=== PATIENT | female | born 1935 | race Caucasian/White ===

== ENCOUNTER 2020-02-15 02:20 | Outpatient (CLI) | payer MEDICARE, SELFPAY ==
[2020-02-17 01:35] LABS: SARS-CoV-2 RNA PCR Negative
== END 2020-02-15 02:21 | disposition home or self-care (01) ==
LOC: ANHCOVIDDT 02:20
PROVIDERS: PCP Internal Medicine; Visit Provider Internal Medicine Gastroenterology
DX: Z01.812 Encounter for preprocedural laboratory examination (principal); Z11.59 Encounter for screening for other viral diseases
CPT/HCPCS: 87635; C9803; U0003

== ENCOUNTER 2020-02-18 00:58 | Day surgery (SDC) | payer MEDICARE, SELFPAY ==
[2020-02-10 12:35] VITALS: BMI 31.6
--- NOTE | 2020-02-18 12:04 | WPDANESEPPF ---
Anes - Initial Pre Proc Eval Procedure: Operation Date: 02/18/20 13:45 Proposed Procedures p Screening Colonoscopy - Anshul Copeland MD Date/Time: 02/18/20 12:04 Surgeon: Anshul Copeland MD Pre Op Diagnosis: Neoplasm Screening Patient Data Age: 84 Gender: F Height: 1.55 m Weight: 76 kg Allergies Allergy/AdvReac Type Severity Reaction Status Date / Time Penicillins Allergy Severe Difficulty Verified 02/18/20 12:33 Breathing sulfur dioxide Allergy Severe Difficulty Verified 02/18/20 12:33 Breathing lactose AdvReac Verified 02/18/20 12:34 wheat AdvReac Abdominal Verified 02/18/20 12:34 Pain Home Medications Medication Instructions Recorded Confirmed Type omeprazole 40 mg capsule,delayed 40 mg PO DAILY #90 cap 09/09/19 02/10/20 Rx release famotidine 20 mg tablet 20 mg PO DAILY #90 tablet 11/13/19 02/10/20 Rx olmesartan 20 1 tablet PO DAILY #90 tablet 11/13/19 02/10/20 Rx mg-hydrochlorothiazide 12.5 mg tablet hydrocodone 5 mg-acetaminophen 325 1 tablet PO Q12H PRN #60 tablet 02/03/20 02/10/20 Rx mg tablet peg 3350-electrolytes 236 240 ml PO Q10M #4000 ml 02/03/20 Rx gram-22.74 gram-6.74 gram-5.86 gram solution aspirin [Aspir-81] 81 mg PO DAILY 02/10/20 02/10/20 History cholecalciferol (vitamin D3) 25 mcg PO DAILY 02/10/20 02/10/20 History latanoprost 1 drp OPHTHALMIC (EYE) QPM 02/10/20 02/10/20 History Patient hx anesthesia problems: none Family hx anesthesia problems: none PMFSH Past Medical History Medical History (Updated 02/17/20 @ 10:16 by Abdelrahman Guerrero DO) Adult celiac disease Allergies Arthritis Back pain with history of spinal surgery Celiac disease CVA (cerebral vascular accident) 5 mini strokes after surgery 2008 FH: colon cancer GERD (gastroesophageal reflux disease) History of heart attack Hypertension Lactose intolerance Osteoporosis Personal history of gastric ulcer Postoperative cerebrovascular accident Surgical History Surgical History (Updated 02/17/20 @ 10:16 by Abdelrahman Guerrero DO) History of hysterectomy History of neck surgery History of Alissa fundoplication Social History Social History Smoking status: Never smoker Alcohol intake: current Substance use: never Anes - Eval Final PreProcedure Day of Procedure 02/18/20 12:04 Patient weight: obese Heart: regular rate and rhythm Lungs: clear to auscultation and normal air movement Airway: Mallampati scale class II Neurological: alert and oriented Last oral intake: >/= 8 hours ASA classification: III Emergent: no Anesthetic plan: proceed Anesthesia type and monitoring: general GIVS and standard monitoring Informed Consent: The patient's anesthetic plan and its attendant risks and benefits were discussed with the patient/family/POA. Questions were solicited and answers provided to the satisfaction of the patient/family/POA.
[2020-02-18 12:41] VITALS: BP 114/52; PULSE 68; RESP 20; TEMP 36.7; O2SAT 97
[2020-02-18 12:43] VITALS: BMI 30.9
[2020-02-18] MEDS: LACTATED RINGERS 1,000 ML 150 ML IV CONT (12:58)
--- NOTE | 2020-02-18 13:19 | PM.HPGS ---
History of Present Illness History of Present Illness Consent: Risks, benefits, and alternatives have been discussed and questions answered. Patient agrees to proceed with procedure. Chief complaint: Neoplasm Screening Narrative: Loren Dia is a 84 year old female here for positive cologuard, her last colonoscopy about 25-30 years ago. Review of Systems Constitutional: Constitutional: Denies headache(s) and Denies weakness Eyes: Eyes: Denies blurry vision ENT: Reports Normal hearing present, Denies headache(s) and Denies neck pain Cardiovascular: Cardiovascular: Denies chest pain and Denies dyspnea Respiratory: Respiratory: Denies dyspnea Gastrointestinal: Gastrointestinal: Reports no additional gastrointestinal complaints Genitourinary: Genitourinary: Denies dysuria Musculoskeletal: Musculoskeletal: Denies neck pain Integumentary/Breasts: Skin/Breast: Denies dry skin Neurologic: Reports Normal hearing present, Denies headache(s) and Denies weakness Psychiatric: Psychiatric: Denies anxiety Endocrine: Endocrine: Denies change in body appearance Hematologic/Lymphatic: Hematologic/Lymphatic: Denies easy bleeding Allergic/Immunologic: Allergic/Immunologic: Denies urticaria PMFSH Past Medical History Medical History (Updated 02/18/20 @ 13:20 by Anshul Copeland MD) Adult celiac disease Allergies Arthritis Back pain with history of spinal surgery Celiac disease CVA (cerebral vascular accident) 5 mini strokes after surgery 2008 FH: colon cancer GERD (gastroesophageal reflux disease) History of heart attack Hypertension Lactose intolerance Osteoporosis Personal history of gastric ulcer Positive colorectal cancer screening using Cologuard test Postoperative cerebrovascular accident Surgical History Surgical History (Updated 02/17/20 @ 10:16 by Abdelrahman Guerrero DO) History of hysterectomy History of neck surgery History of Alissa fundoplication Social History Social History Smoking status: Never smoker Alcohol intake: current Substance use: never Meds Home Medications and Allergies Home Medications Medication Instructions Recorded Confirmed Type omeprazole 40 mg capsule,delayed 40 mg PO DAILY #90 cap 09/09/19 02/10/20 Rx release famotidine 20 mg tablet 20 mg PO DAILY #90 tablet 11/13/19 02/10/20 Rx olmesartan 20 1 tablet PO DAILY #90 tablet 11/13/19 02/10/20 Rx mg-hydrochlorothiazide 12.5 mg tablet hydrocodone 5 mg-acetaminophen 325 1 tablet PO Q12H PRN #60 tablet 02/03/20 02/10/20 Rx mg tablet peg 3350-electrolytes 236 240 ml PO Q10M #4000 ml 02/03/20 Rx gram-22.74 gram-6.74 gram-5.86 gram solution aspirin [Aspir-81] 81 mg PO DAILY 02/10/20 02/10/20 History cholecalciferol (vitamin D3) 25 mcg PO DAILY 02/10/20 02/10/20 History latanoprost 1 drp OPHTHALMIC (EYE) QPM 02/10/20 02/10/20 History Allergies Allergy/AdvReac Type Severity Reaction Status Date / Time Penicillins Allergy Severe Difficulty Verified 02/18/20 12:33 Breathing sulfur dioxide Allergy Severe Difficulty Verified 02/18/20 12:33 Breathing lactose AdvReac Verified 02/18/20 12:34 wheat AdvReac Abdominal Verified 02/18/20 12:34 Pain Vital Signs Vital Signs - 24 hr 02/18/20 12:41 Temperature 98.1 F Pulse Rate 68 Respiratory Rate 20 Blood Pressure 114/52 L Pulse Oximetry 97 Exam Const: General: comfortable and no acute distress HENMT: General nose exam: Normal nares present Eyes: General: appearance normal, both eyes and all related structures Neck: Neck: no JVD Resp: Auscultation: clear to auscultation bilaterally Cardio: Rate: regular rate Rhythm: regular rhythm GI: Inspection: non-distended GI Palp: Yes Soft to palpation Skin: General skin exam: normal color Neuro: General: gait normal Speech: normal speech Extrem: General: normal to inspection Psych
[2020-02-18 13:42] VITALS: BP 90/57; PULSE 93; RESP 27; O2SAT 93
[2020-02-18 13:53] VITALS: BP 101/66; PULSE 87; RESP 16; O2SAT 95
[2020-02-18 14:02] VITALS: BP 98/66; PULSE 85; RESP 21; O2SAT 95
== END 2020-02-18 14:10 | disposition home or self-care (01) ==
PROVIDERS: PCP Internal Medicine; Visit Provider Internal Medicine Gastroenterology
PROC: 0DJD8ZZ Inspection of Lower Intestinal Tract, Via Natural or Artificial Opening Endoscopic (ICD-10-PCS; CPT 45378; principal; 2020-02-18 13:45)
DX: Z12.11 Encounter for screening for malignant neoplasm of colon (principal); R19.5 Other fecal abnormalities; K57.30 Diverticulosis of large intestine without perforation or abscess without bleeding; K63.5 Polyp of colon; K64.8 Other hemorrhoids; I10 Essential (primary) hypertension; K90.0 Celiac disease; K21.9 Gastro-esophageal reflux disease without esophagitis; Z86.73 Personal history of transient ischemic attack (TIA), and cerebral infarction without residual deficits; M81.0 Age-related osteoporosis without current pathological fracture; Z87.11 Personal history of peptic ulcer disease; Z79.82 Long term (current) use of aspirin
CPT/HCPCS: 45385; 87635; 88305; C9803; J2704; J7120; U0003

== ENCOUNTER 2020-10-07 15:30 | Outpatient (CLI) | payer MEDICARE, SELFPAY | END 2020-10-07 15:31 | disposition home or self-care (01) | LOC: ANHCOVIDVC 15:30 | PROVIDERS: PCP Internal Medicine | DX: Z23 Encounter for immunization (principal) | CPT/HCPCS: 0001A; 91300 ==

== ENCOUNTER 2020-10-28 15:21 | Outpatient (CLI) | payer MEDICARE, SELFPAY | END 2020-10-28 15:22 | disposition home or self-care (01) | LOC: ANHCOVIDVC 15:22 | PROVIDERS: PCP Internal Medicine | DX: Z23 Encounter for immunization (principal) | CPT/HCPCS: 0002A; 91300 ==

== ENCOUNTER → 2020-12-08 10:38 | Outpatient (CLI) | payer MEDICARE, SELFPAY ==
--- NOTE | ~2020-12-08 | XR_ITS ---
XR shoulder RT min 2V DATE: 12/08/2020 11:11 INDICATION: Right shoulder pain TECHNIQUE: 4 views COMPARISON: None FINDINGS: There is osteopenia. No fracture or dislocation, periosteal reaction or bone destruction or abnormal soft tissue calcifica tion is noted at the right shoulder. Thoracic scoliosis and degenerative spurring. IMPRESSION: Osteopenia No fracture or dislocation or abnormal soft tissue calcification of right shoulder Thoracic scoliosis and degenerative spurring Reviewed, dictated and finalized at location B. IMPRESSION: Osteopenia No fracture or dislocation or abnormal soft tissue calcification of right shoul jeana Thoracic scoliosis and degenerative spurring
--- NOTE | ~2020-12-08 | XR_ITS ---
XR shoulder LT min 2V DATE: 12/08/2020 11:10 INDICATION: Left shoulder pain TECHNIQUE: 4 views COMPARISON: None FINDINGS: Diffuse osteopenia. No fracture or dislocation, periosteal reaction or bone destruction or abnormal soft tissue calcification of the left shoulder. Levoscoliosis and degenerative spurring of the upper thoracic spine. IMPRESSION: No fracture or dislocation or abnormal soft tissue calcification Osteopenia Reviewed, dictated and finalized at location B.
== END ==
PROVIDERS: PCP Internal Medicine; Visit Provider Internal Medicine
DX: M85.812 Other specified disorders of bone density and structure, left shoulder (principal); M41.9 Scoliosis, unspecified; M85.811 Other specified disorders of bone density and structure, right shoulder
CPT/HCPCS: 73030

== ENCOUNTER 2022-02-21 15:21 | Outpatient (CLI) | payer MEDICARE, SELFPAY ==
[2022-02-21 19:03] LABS: Alanine Aminotransferase 26 U/L (6-35); Albumin Level 4.4 g/dL (3.5-5.1); Alkaline Phosphatase 79 U/L (38-126); Anion Gap 13 mmol/L (8-16); Aspartate Amino Transferase 32 U/L (14-36); Bilirubin,Total 0.5 mg/dL (0.2-1.3); Blood Urea Nitrogen 33 mg/dL (7-17); Calcium 9.7 mg/dL (8.4-10.2); Carbon Dioxide 26 mmol/L (22-30); Chloride 100 mmol/L (98-107); Cholesterol 197 mg/dL (0-200); Estimated Glomerular Filt Rate 27; Glucose 113 mg/dL (65-110); HDL Direct 75 mg/dL; Potassium 4.1 mmol/L (3.4-5.0); Sodium 139 mmol/L (137-145); Triglycerides 189 mg/dL (<150)
[2022-02-21 19:14] LABS: LDL Cholesterol Direct 67 mg/dL
[2022-02-21 21:52] LABS: Hemoglobin A1C 6.4 % (<5.7)
== END 2022-02-21 15:22 | disposition home or self-care (01) ==
LOC: ANHGOSHLAB 15:23
PROVIDERS: PCP Family Medicine; Visit Provider Family Medicine
DX: E78.5 Hyperlipidemia, unspecified (principal); Z13.29 Encounter for screening for other suspected endocrine disorder; E66.9 Obesity, unspecified; I10 Essential (primary) hypertension
CPT/HCPCS: 36415; 80053; 80061; 83036; 84443

== ENCOUNTER → 2022-07-11 16:24 | Outpatient (CLI) | payer MEDICARE, SELFPAY ==
--- NOTE | ~2022-07-11 | XR_ITS ---
XR chest 2V DATE: 07/11/2022 16:31 INDICATION: Cough, shortness of breath, fever for one month TECHNIQUE: 2 views COMPARISON: None FINDINGS: Normal heart size. No pulmonary infiltrate or consolidation, pleural effusion or pulmonary vascular congestion or pneumothorax. Multiple surgical clips are noted in the upper abdomen, particularly on the left. Prominent thoracic and lumbar scoliosis. Diffuse osteopenia. IMPRESSION: Diffuse osteopenia Prominent thoracic and lumbar scoliosis Postoperative change of the abdomen No active cardiopulmonary disease Reviewed, dictated and finalized at location A. UNLOADER
== END ==
PROVIDERS: PCP Family Medicine; Visit Provider Family Medicine
DX: R05.9 Cough, unspecified (principal); R06.02 Shortness of breath; R50.9 Fever, unspecified; M85.88 Other specified disorders of bone density and structure, other site; M41.9 Scoliosis, unspecified
CPT/HCPCS: 71046

== ENCOUNTER 2023-01-13 14:45 | Outpatient (CLI) | payer MEDICARE, SELFPAY ==
[2023-01-13 18:44] LABS: Alanine Aminotransferase 28 U/L (6-35); Albumin Level 4.1 g/dL (3.5-5.1); Alkaline Phosphatase 64 U/L (38-126); Anion Gap 7 mmol/L (8-16); Aspartate Amino Transferase 44 U/L (14-36); Bilirubin,Total 0.4 mg/dL (0.2-1.3); Blood Urea Nitrogen 24 mg/dL (7-17); Calcium 8.8 mg/dL (8.4-10.2); Carbon Dioxide 29 mmol/L (22-30); Chloride 102 mmol/L (98-107); Estimated Glomerular Filt Rate 36; Glucose 99 mg/dL (65-110); Potassium 4.4 mmol/L (3.4-5.0); Sodium 138 mmol/L (137-145)
== END 2023-01-13 14:46 | disposition home or self-care (01) ==
LOC: ANHGOSHLAB 14:47
PROVIDERS: PCP Family Medicine; Visit Provider Family Medicine
DX: Z13.228 Encounter for screening for other metabolic disorders (principal)
CPT/HCPCS: 36415; 80053

== ENCOUNTER 2023-03-09 15:13 | Outpatient (CLI) | payer MEDICARE, SELFPAY ==
[2023-03-09 18:51] LABS: Alanine Aminotransferase 28 U/L (6-35); Albumin Level 4.3 g/dL (3.5-5.1); Alkaline Phosphatase 80 U/L (38-126); Anion Gap 8 mmol/L (8-16); Aspartate Amino Transferase 40 U/L (14-36); Bilirubin,Total 0.3 mg/dL (0.2-1.3); Blood Urea Nitrogen 57 mg/dL (7-17); Calcium 9.2 mg/dL (8.4-10.2); Carbon Dioxide 26 mmol/L (22-30); Chloride 107 mmol/L (98-107); Estimated Glomerular Filt Rate 19; Glucose 125 mg/dL (65-110); Potassium 4.1 mmol/L (3.4-5.0); Sodium 141 mmol/L (137-145)
== END 2023-03-09 15:14 | disposition home or self-care (01) ==
LOC: ANHGOSHLAB 15:15
PROVIDERS: PCP Family Medicine; Visit Provider Family Medicine
DX: Z13.228 Encounter for screening for other metabolic disorders (principal)
CPT/HCPCS: 36415; 80053

== ENCOUNTER 2023-04-22 08:58 | Outpatient (CLI) | payer MEDICARE, SELFPAY ==
[2023-04-22 09:37] LABS: Albumin Level 4.3 g/dL (3.5-5.1); Anion Gap 11 mmol/L (8-16); Blood Urea Nitrogen 32 mg/dL (7-17); Carbon Dioxide 21 mmol/L (22-30); Chloride 107 mmol/L (98-107); Estimated Glomerular Filt Rate 27; Glucose 117 mg/dL (65-110); Phosphorus 4.1 mg/dL (2.5-4.5); Potassium 4.1 mmol/L (3.4-5.0); Sodium 139 mmol/L (137-145)
[2023-04-22 09:45] LABS: Complement C3 138 mg/dL (88-165)
[2023-04-22 10:00] LABS: Creatinine Urine 180.2 mg/dL
[2023-04-22 10:01] LABS: Sodium Urine Random 105 meq/L; Total Protein Urine Random < 5 mg/dL
[2023-04-22 10:02] LABS: Ur Ttl Prot Creatinine Ratio < 0.03 mg/mg (0-0.20)
[2023-04-25 13:05] LABS: Albumin 3.7 g/dL (3.8-4.8); Alpha 1 Globulin 0.3 g/dL (0.2-0.3); Beta 1 Globulin 0.5 g/dL (0.4-0.6); Gamma Globulin 0.8 g/dL (0.8-1.7); Protein, Total 6.7 g/dL (6.1-8.1)
[2023-04-27 10:46] LABS: Anti Glomerular Basement Memb <1.0 AI (<1.0)
[2023-04-27 21:55] LABS: ANCA Screen Negative (Negative)
[2023-04-30 00:12] LABS: Creatinine, Random Urine 170 mg/dL (20-275); Total Protein/Creatinine Ratio 59 mg/g creat (24-184)
== END 2023-04-22 08:59 | disposition home or self-care (01) ==
PROVIDERS: PCP Family Medicine; Visit Provider Internal Medicine Nephrology
DX: N17.9 Acute kidney failure, unspecified (principal); N18.32 Chronic kidney disease, stage 3b
CPT/HCPCS: 36415; 80069; 82570; 83520; 84155; 84156; 84165; 84166; 84300; 86036; 86038; 86160; 86225

== ENCOUNTER 2023-05-04 16:37 | Outpatient (CLI) | payer MEDICARE, SELFPAY ==
--- NOTE | ~2023-05-04 | US_ITS ---
US renal BI 05/04/2023 17:59 Procedure: Realtime transabdominal ultrasound of the kidneys and bladder. Indication: Chronic kidney disease Comparison: No prior studies for comparison. Findings: Renal echotexture is normal bilaterally without hydronephrosis, contour deforming mass or r enal calculus. The right kidney measures 8.6 cm and left kidney measures 9.5 cm. Prevoid volume in th e bladder is 124 cc. Patient unable to urinate. There is fatty infiltration of the liver. Impression: 1: Unremarkable renal ultrasound. No stones, masses or hydronephrosis. 2: Large post void residual. Reviewed, dictated and finalized at location A. Impression: 1: Unremarkable renal ultrasound. No stones, masses or hydronephrosis. 2: Large post void residual.
== END 2023-05-04 16:38 | disposition home or self-care (01) ==
PROVIDERS: PCP Family Medicine; Visit Provider Internal Medicine Nephrology
DX: N17.9 Acute kidney failure, unspecified (principal); N18.32 Chronic kidney disease, stage 3b
CPT/HCPCS: 76775

== ENCOUNTER 2023-08-12 09:16 | Outpatient (CLI) | payer MEDICARE, SELFPAY ==
[2023-08-12 10:21] LABS: Albumin Level 3.9 g/dL (3.5-5.1); Anion Gap 6 mmol/L (8-16); Blood Urea Nitrogen 23 mg/dL (7-17); Calcium 9.3 mg/dL (8.4-10.2); Carbon Dioxide 29 mmol/L (22-30); Chloride 105 mmol/L (98-107); Estimated Glomerular Filt Rate 39; Glucose 119 mg/dL (65-110); Phosphorus 3.7 mg/dL (2.5-4.5); Potassium 4.3 mmol/L (3.4-5.0); Sodium 140 mmol/L (137-145)
[2023-08-12 10:22] LABS: Creatinine Urine 223.1 mg/dL
[2023-08-12 10:54] LABS: Vitamin D 25 Hydroxy 64.1 ng/mL
[2023-08-12 10:56] LABS: Total Protein Urine Random < 5 mg/dL
[2023-08-12 10:57] LABS: Ur Ttl Prot Creatinine Ratio < 0.02 mg/mg (0-0.20)
== END 2023-08-12 09:17 | disposition home or self-care (01) ==
PROVIDERS: PCP Family Medicine; Visit Provider Internal Medicine Nephrology
DX: N18.32 Chronic kidney disease, stage 3b (principal); E55.9 Vitamin D deficiency, unspecified; N17.9 Acute kidney failure, unspecified; N25.81 Secondary hyperparathyroidism of renal origin
CPT/HCPCS: 36415; 80069; 82306; 82570; 83970; 84156

== ENCOUNTER 2023-12-08 09:22 | Outpatient (CLI) | payer MEDICARE, SELFPAY ==
[2023-12-08 10:09] LABS: Cholesterol 185 mg/dL (0-200); HDL Direct 76 mg/dL; Triglycerides 206 mg/dL (<150)
[2023-12-08 10:11] LABS: Albumin Level 4.3 g/dL (3.5-5.1); Anion Gap 8 mmol/L (4-12); Blood Urea Nitrogen 27 mg/dL (7-17); Calcium 9.3 mg/dL (8.4-10.2); Carbon Dioxide 25 mmol/L (22-30); Chloride 106 mmol/L (98-107); Estimated Glomerular Filt Rate 35; Glucose 123 mg/dL (65-110); Phosphorus 3.9 mg/dL (2.5-4.5); Potassium 3.9 mmol/L (3.4-5.0); Sodium 139 mmol/L (137-145)
[2023-12-08 10:12] LABS: Creatinine Urine 188.4 mg/dL
[2023-12-08 10:22] LABS: LDL Cholesterol Direct 78 mg/dL
[2023-12-08 10:26] LABS: Hemoglobin A1C 6.2 % (<5.7)
[2023-12-08 10:28] LABS: Total Protein Urine Random < 5 mg/dL; Ur Ttl Prot Creatinine Ratio < 0.03 mg/mg (0-0.20)
== END 2023-12-08 09:23 | disposition home or self-care (01) ==
LOC: ANHLAB 09:26
PROVIDERS: PCP Family Medicine; Referring Provider Family Medicine; Visit Provider Internal Medicine Nephrology
DX: R73.03 Prediabetes (principal); I12.9 Hypertensive chronic kidney disease with stage 1 through stage 4 chronic kidney disease, or unspecified chronic kidney disease; N18.32 Chronic kidney disease, stage 3b; E78.1 Pure hyperglyceridemia
CPT/HCPCS: 36415; 80061; 80069; 82570; 83036; 84156

== ENCOUNTER 2024-05-18 07:32 | Outpatient (CLI) | payer MEDICARE, SELFPAY ==
[2024-05-18 09:21] LABS: Creatinine Urine 169.5 mg/dL
[2024-05-18 09:24] LABS: Albumin Level 4.1 g/dL (3.5-5.1); Anion Gap 11 mmol/L (4-12); Blood Urea Nitrogen 28 mg/dL (7-17); Calcium 9.1 mg/dL (8.4-10.2); Carbon Dioxide 24 mmol/L (22-30); Chloride 105 mmol/L (98-107); Estimated Glomerular Filt Rate 35; Glucose 138 mg/dL (65-110); Phosphorus 3.4 mg/dL (2.5-4.5); Potassium 3.8 mmol/L (3.4-5.0); Sodium 140 mmol/L (137-145)
[2024-05-18 09:32] LABS: Total Protein Urine Random < 5 mg/dL; Ur Ttl Prot Creatinine Ratio < 0.03 mg/mg (0-0.20)
== END 2024-05-18 07:33 | disposition home or self-care (01) ==
LOC: ANHLAB 07:33
PROVIDERS: PCP Family Medicine; Visit Provider Internal Medicine Nephrology
DX: I12.9 Hypertensive chronic kidney disease with stage 1 through stage 4 chronic kidney disease, or unspecified chronic kidney disease (principal); N18.32 Chronic kidney disease, stage 3b; N25.81 Secondary hyperparathyroidism of renal origin; E55.9 Vitamin D deficiency, unspecified
CPT/HCPCS: 36415; 80069; 82306; 82570; 83970; 84156

== ENCOUNTER 2024-08-01 17:31 | Outpatient (CLI) | payer MEDICARE, SELFPAY ==
[2024-08-01 17:56] LABS: Basophils Absolute Auto 0.1 K/mm3 (0.0-0.1); Basophils Percent Auto 0.5 % (0.2-1.2); Eosinophils Absolute Auto 0.1 K/mm3 (0-0.3); Eosinophils Percent Auto 0.6 % (0-4.4); Hematocrit 42.5 % (37.0-47.0); Hemoglobin 13.9 g/dL (12.0-15.0); Immature Granulocyte Absolute 0.08 K/mm3 (0.00-0.031); Immature Granulocyte Percent A 0.6 % (0-0.5); Lymphocytes Absolute Auto 2.71 K/mm3 (0.9-3.2); Lymphocytes Percent Auto 19.4 % (18.3-44.2); Mean Corpuscular HGB Conc 32.7 g/dl (32-36); Mean Corpuscular Hemoglobin 29.1 pg (26-34); Mean Corpuscular Volume 88.9 fl (80-100); Monocytes Absolute Auto 1.5 K/mm3 (0.1-0.6); Neutrophils Absolute Auto 9.5 K/mm3 (1.3-6.7); Neutrophils Percent Auto 67.9 % (45.5-73.1); Platelet Count Result 385 k/mm3 (150-375); Red Blood Count 4.78 M/mm3 (4.2-5.4); Red Cell Distribution Width 13.9 % (11.5-14.5)
[2024-08-01 18:25] LABS: Alanine Aminotransferase 26 U/L (6-35); Albumin Level 4.1 g/dL (3.5-5.1); Alkaline Phosphatase 88 U/L (38-126); Anion Gap 13 mmol/L (4-12); Aspartate Amino Transferase 28 U/L (14-36); Bilirubin,Total 0.9 mg/dL (0.2-1.3); Blood Urea Nitrogen 31 mg/dL (7-17); Calcium 9.5 mg/dL (8.4-10.2); Carbon Dioxide 24 mmol/L (22-30); Chloride 100 mmol/L (98-107); Estimated Glomerular Filt Rate 28; Glucose 116 mg/dL (65-110); Potassium 3.4 mmol/L (3.4-5.0); Sodium 137 mmol/L (137-145)
== END 2024-08-01 17:32 | disposition home or self-care (01) ==
PROVIDERS: PCP Family Medicine; Visit Provider Family Medicine
DX: R53.83 Other fatigue (principal); Z13.228 Encounter for screening for other metabolic disorders
CPT/HCPCS: 36415; 80053; 85025

== ENCOUNTER 2024-12-30 08:40 | Outpatient (CLI) | payer MEDICARE, SELFPAY ==
--- OUTSIDE RECORDS SUMMARY | 2024-12-30 09:02 | XMS_ITS | Clinical Summary ---
Author Organization [facility] Address [address] [place] [address] Care Team Providers Care Pediatric Cns Name Role Phone Ashwin Gates DO Primary Care Provider [phone] Allergies Active Allergy Reactions Criticality Noted Date Comments Codeine Itching Low 08/02/2024 Penicillin Anaphylaxis High 08/02/2024 Medications No known medications Encounters Date Type Department Care Team Description 11/14/2024 Telephone [facility] [address] [address] Soumya Chopra NP from Last 3 Months Social History Tobacco Use Types Packs/Day Years Used Date Smoking Tobacco: Never Assessed Personal Safety Answer Date Recorded Have you ever been in or are you currently in a harmful physical or emotional relationship or is someone making you feel afraid or unsafe? Denies 08/02/2024 Comments Unknown Sex and Gender Information Value Date Recorded Sex Assigned at Not on file Legal Sex Female 11:44 AM RADIOLOGY THERAPIST Gender Identity Not on file Sexual Orientation Not on file Obstetrics History Last Filed Vital Signs Vital Sign Reading Time Taken Comments Blood Pressure 131/80 08/02/2024 6:00 PM RADIOLOGY THERAPIST Pulse 96 08/02/2024 6:00 PM RADIOLOGY THERAPIST Temperature 36.4 C (97.6 F) 08/02/2024 11:47 AM RADIOLOGY THERAPIST Respiratory Rate 22 08/02/2024 6:00 PM RADIOLOGY THERAPIST Oxygen Saturation 94% 08/02/2024 6:00 PM RADIOLOGY THERAPIST Inhaled Oxygen Concentration - - Weight 74.8 kg (165 lb) 08/02/2024 11:50 AM RADIOLOGY THERAPIST Height 149.9 cm (4' 11) 08/02/2024 11:50 AM RADIOLOGY THERAPIST Body Mass Index 33.33 08/02/2024 11:50 AM RADIOLOGY THERAPIST Plan of Treatment Health Maintenance Due Date Last Done Comments Depression Screening 1935 Fall Risk Assessment 1935 DTaP/Tdap/Td Vaccine (1 - Tdap) 1946 Hepatitis B Screening 1953 Pneumococcal vaccine 65+ (1 of 1 - PCV) 1985 Zoster Vaccine (1 of 2) 1985 Well Visit 65+ 2000 Influenza Vaccine (Season Ended) 2025 Insurance [facility] [place] [address] [facility] MEDICARE ADVANTAGE Care Teams Pediatric Cns Relationship Specialty Start Date End Date Ashwin Gates DO [address] [place] [address] PCP - General Family Medicine 08/02/24
--- OUTSIDE RECORDS SUMMARY | 2024-12-30 09:02 | XMS_ITS | Referral Summary ---
Author Organization [facility] Address [address] [place] [address] Care Team Providers Care Capacity Planner Name Role Phone Ashwin Gates Primary Care Provider [phone] Encounters Date Type Department Care Team Description 11/14/2024 Telephone [facility] [address] [address] Soumya Chopra NP from Last 3 Months Allergies Active Allergy Reactions Criticality Noted Date Comments Codeine Itching Low 08/02/2024 Penicillin Anaphylaxis High 08/02/2024 Medications No known medications Social History Tobacco Use Types Packs/Day Years [...] on file Legal Sex Female 11:44 AM PERMIT AGENT Gender Identity Not on file Sexual Orientation Not on file Last Filed Vital Signs Vital Sign Reading Time Taken Comments Blood Pressure 131/80 08/02/2024 6:00 PM PERMIT AGENT Pulse 96 08/02/2024 6:00 PM PERMIT AGENT Temperature 36.4 C (97.6 F) 08/02/2024 11:47 AM PERMIT AGENT Respiratory Rate 22 08/02/2024 6:00 PM PERMIT AGENT Oxygen Saturation 94% 08/02/2024 6:00 PM PERMIT AGENT Inhaled Oxygen Concentration - - Weight 74.8 kg (165 lb) 08/02/2024 11:50 AM PERMIT AGENT Height 149.9 cm (4' 11) 08/02/2024 11:50 AM PERMIT AGENT Body Mass Index 33.33 08/02/2024 11:50 AM PERMIT AGENT Plan of Treatment Not on file Insurance [facility]CR HMO REF [facility] MEDICARE ADVANTAGE Care Teams Capacity Planner Relationship Specialty Start Date End Date Ashwin Gates DO [address] [facility] [address] [address] PCP - General Family Medicine 08/02/24
[2024-12-30 09:38] LABS: Anion Gap 10 mmol/L (4-12); Blood Urea Nitrogen 22 mg/dL (7-17); Calcium 9.3 mg/dL (8.4-10.2); Carbon Dioxide 23 mmol/L (22-30); Chloride 109 mmol/L (98-107); Estimated Glomerular Filt Rate 43; Glucose 134 mg/dL (65-110); Phosphorus 3.3 mg/dL (2.5-4.5); Potassium 3.8 mmol/L (3.4-5.0); Sodium 142 mmol/L (137-145)
[2024-12-30 09:46] LABS: Creatinine Urine 198.4 mg/dL
[2024-12-30 10:01] LABS: Total Protein Urine Random < 5 mg/dL
[2024-12-30 10:02] LABS: Ur Ttl Prot Creatinine Ratio < 0.03 mg/mg (0-0.20)
== END 2024-12-30 08:41 | disposition home or self-care (01) ==
LOC: ANHLAB 08:42
PROVIDERS: PCP Nurse Practitioner; Visit Provider Internal Medicine Nephrology
DX: I12.9 Hypertensive chronic kidney disease with stage 1 through stage 4 chronic kidney disease, or unspecified chronic kidney disease (principal); N18.32 Chronic kidney disease, stage 3b
CPT/HCPCS: 36415; 80069; 82570; 84156